=== PATIENT | female | born 1995 | race African-American/Black ===

== ENCOUNTER 2016-11-11 03:22 | Emergency (ER) | payer SELFPAY ==
[~2016-11-11] VITALS: Ht 144.8 cm; Wt 41.0 kg
[~2016-11-11 03:22] MED LIST: TRIA.1%T TOP
[2016-11-11 03:26] VITALS: BP 135/64; PULSE 101; RESP 16; TEMP 98.2; O2SAT 100
[2016-11-11] MEDS ORDERED: PENI500T PO (03:45)
[2016-11-11] MEDS ORDERED: AMOXICILLIN (TRIHYDRATE) 500 MG CAP PO ONE (03:45)
--- NOTE | 2016-11-11 03:49 | PD ---
HPI Chief Complaint: ENT Complaint Time Seen by Provider: 03:46 Travel History International Travel<30 days: No Contact w/Intl Traveler<30days: No Traveled to known affect area: No History of Present Illness HPI 21-year-old black female presents emergency Department with a one-week history of sore throat. In addition she's had runny nose, congestion, slight nausea but no vomiting. She denies any cough, shortness of breath, bowel pain, dysuria , frequency. PFSH Past Medical History Diminished Hearing: No Integumentary: Yes (ECZEMA) Immunizations Current: Yes Tetanus Vaccination: Unknown Influenza Vaccination: No ?: Not LMP: STARTED 5 DAYS AGO : 0 Past Surgical History Surgical History: No Previous Surgery Social History Alcohol Use: No Tobacco Use: No Substance Use: No Allergies-Medications (Allergen,Severity, Reaction): Coded Allergies: No Known Allergies (Verified , 11/11/16) Reported Meds & Prescriptions Reported Meds & Active Scripts Active Penicillin V Potassium 500 Mg Tab 500 Mg PO Q12HR Review of Systems Except as stated in HPI: all other systems reviewed are Neg Physical Exam Narrative GENERAL: Well-developed, well-nourished in no acute distress. Nontoxic appearing. HEAD: Normocephalic, atraumatic. EYES: Pupils equal round and reactive. Extraocular motions intact. No scleral icterus. No injection or drainage. ENT: TMs clear without erythema. The external auditory canals clear. Nose: clear . Posterior pharynx is erythematous and moist. No tonsillar edema or exudate. Uvula midline. Airway patent. NECK: Trachea midline.Supple, nontender, moves head freely. No central bony tenderness or spasm. CARDIOVASCULAR: Regular rate and rhythm without murmurs, gallops, or rubs. RESPIRATORY: Clear to auscultation. Breath sounds equal bilaterally. No wheezes , rales, or rhonchi. GASTROINTESTINAL: Abdomen soft, non-tender, nondistended. No hepato-splenomegaly , or palpable masses. No guarding. EXTREMITIES: No clubbing, cyanosis, or edema. No joint tenderness, effusion, or edema noted. BACK: Nontender without deformity or crepitance. No flank tenderness. Data Data Last Documented VS Vital Signs Date Time Temp Pulse Resp B/P Pulse Ox O2 Delivery O2 Flow Rate FiO2 11/11/16 03:29 16 11/11/16 03:26 98.2 101 135/64 100 Room Air Orders Amoxicillin (Trimox) (11/11/16 03:45) MDM Medical Decision Making Medical Screen Exam Complete: Yes Emergency Medical Condition: Yes Medical Record Reviewed: Yes Differential Diagnosis MDM: High Differential diagnoses: Strep throat, viral pharyngitis, mono, peritonsillar abscess, retropharyngeal abscess, Hill's angina Narrative Course Patient's given amoxicillin 500 mg by mouth. This acute pharyngitis, URI Diagnosis Primary Impression: Acute pharyngitis Qualified Code: J02.9 - Acute pharyngitis, unspecified etiology Additional Impression: URI (upper respiratory infection) Qualified Code: J06.9 - Viral upper respiratory tract infection Patient Instructions: General Instructions Additional Instructions: Rest. Force fluids. Saltwater gargles. Tylenol and Advil. Chloraseptic [place] Cepastat lozenge. Pen-Vee K Follow-up with a primary care doctor in one week. Return to the ER if any problems. Med/Other Pt SpecificInfo: Prescription(s) given Scripts Penicillin V Potassium 500 Mg [id number] Mg PO Q12HR #20 TAB Prov:Cesar Marquez MD 11/11/16 Disposition: 01 DISCHARGE HOME Condition: Stable Wilner Esparza Nov 11, 2016 03:49
== END 2016-11-11 04:19 | disposition home or self-care (01) ==
LOC: NEPD 03:22
DX: J02.9 Acute pharyngitis, unspecified (principal); J06.9 Acute upper respiratory infection, unspecified; B97.89 Other viral agents as the cause of diseases classified elsewhere; R11.0 Nausea; Z87.2 Personal history of diseases of the skin and subcutaneous tissue
CPT/HCPCS: 99283